=== PATIENT | male | born 1985 | race African-American/Black ===

== ENCOUNTER 2018-09-01 12:49 | Emergency (ER) | payer SELFPAY ==
[~2018-09-01] VITALS: Ht 185.4 cm; Wt 68.2 kg
[2018-09-01] MEDS ORDERED: LIDOCAINE/PF 1% 2 ML VIAL IM ONE (14:30)
[2018-09-01] MEDS ORDERED: CefTRIAXone SODIUM 1 GM/VIAL IM ONE (14:30)
[2018-09-01] MEDS ORDERED: AZITHROMYCIN 250 MG TABLET PO ONE (14:30)
[2018-09-01 15:05] VITALS: BP 107/86
== END 2018-09-01 15:16 | disposition home or self-care (01) ==
LOC: EMS 12:49
DX: R36.9 Urethral discharge, unspecified (principal); F12.90 Cannabis use, unspecified, uncomplicated
CPT/HCPCS: 96372; 99283; J0696; J3490